=== PATIENT | male | born 1995 | race African-American/Black ===

== ENCOUNTER 2019-07-18 17:07 | Emergency (ER) | payer MEDICAID, SELFPAY ==
[2019-07-18 17:47] VITALS: BP 134/90; PULSE 82; RESP 18; TEMP 37; O2SAT 100
--- NOTE | 2019-07-18 20:47 | ED.ABDPAIN ---
HPI - Abdominal Pain General Chief Complaint: Urogenital-Male Stated Complaint: STD check Time Seen by Provider: 07/18/19 17:32 Source: patient Mode of arrival: ambulatory Limitations: no limitations History of Present Illness HPI narrative: Patient is a 23-year-old male who presents with penile discharge and irritation with urination noting that his girlfriend tested positive for chlamydia. Patient also notes some sore throat congestion and rhinorrhea. Patient denies vomiting or diarrhea Review of Systems Review of Systems: All systems reviewed & are unremarkable except as noted in HPI and below PMFSH Social History Social History (Updated 07/18/19 @ 20:47 by Farrukh Keene PA-C) Smoking status: Never smoker Gender identity (if verbalized by the patient): Male Exam Narrative: Exam Narrative: GENERAL: Well-appearing, well-nourished, and in no acute distress. HEAD: Normocephalic, atraumatic. EYES: PERRLA and EOMI. ENT: Nares clear, no rhinorrhea or epistaxis. Mucous membranes moist. Oropharynx with tonsillar and without hypertrophy exudate or other lesions. NECK: Supple. No adenopathy or masses. CHEST: Clear to auscultation. No respiratory distress. No wheezes rales or rhonchi HEART: Regular rate and rhythm. No murmur heard. EXTREMITIES: Normal range of motion. No edema. SKIN: Warm, dry, no rash. NEURO: No focal deficits. Alert and oriented x3. PSYCH: Normal mood and affect. Course Course Emergency Course: Patient in the room in no distress aware of case findings treatment plan and diagnosis Vital Signs Vital signs: Vital Signs Temperature 98.6 F 07/18/19 17:47 Pulse Rate 82 07/18/19 17:47 Respiratory Rate 18 07/18/19 17:47 Blood Pressure 134/90 07/18/19 17:47 Pulse Oximetry 100 07/18/19 17:47 Temperature 98.6 F 07/18/19 17:47 Pulse Rate 82 07/18/19 17:47 Respiratory Rate 18 07/18/19 17:47 Blood Pressure 134/90 07/18/19 17:47 Pulse Oximetry 100 07/18/19 17:47 MDM - Abdominal Pain MDM Narrative Medical decision making narrative: Patient in the room tested and treated for STDs agreeing to follow-up as directed Lab Data Labs: Lab Results 07/18/19 07/18/19 Range/Units 20:37 20:40 Urine Color Pending Urine Appearance Pending Urine pH Pending Ur Specific [place] Pending Urine Protein Pending Urine Glucose (UA) Pending Urine Ketones Pending Ur Blood (Man) Pending Urine Nitrate Pending Urine Bilirubin Pending Urine Urobilinogen Pending Leukocyte Esterase Rfl Pending C.trachomatis RNA (TMA) Pending N.gonorrhoeae RNA (TMA) Pending Discharge Plan Discharge Clinical Impression: Urethritis Patient Disposition: Home, Self-Care Condition: Stable Instructions: Antibiotic Form, Nonspecific Urethritis in Men (ED) Additional Instructions: Follow up with primary care in the next 2-3 days for re-evaluation. Use condoms Increase fluid intake. Tylenol and Motrin for pain and or fever if needed. Follow up with your doctor for further care. Call your doctor or return to the emergency department if needed for worsening symptoms or problems, especially if you have persistent high fever, vomiting, inability to urinate, weakness, blood in your urine, chnage in mental status, or other serious concerns. Follow-up/Referrals: PHYSICIAN,[employer] [Primary Care Provider] - Hector Kwon MD [Physician] -
[2019-07-18 20:55] LABS: Add Urine Microscopic? YES; Appearance Urine Clear (Clear); Bacteria Urine Trace /hpf; Bilirubin Urine Negative (Negative); Blood Urine Negative (Negative); Color Urine Yellow (Yellow); Glucose Urine UA Negative (Negative); Ketones Urine Negative (Negative); Leukocyte Esterase Ur 2+ LEU/UL (Negative); Nitrate Urine Negative (Negative); Protein Urine Negative (Negative); RBC Urine 0-2 /hpf (0-2); Specific Grav Ur 1.014 (1.001-1.035); Squamous Epithelial Cell Urine Rare /hpf (Few); WBC Urine 31-50 /hpf
[2019-07-18] MEDS: metroNIDAZOLE 250 MG TABLET 2000 MG PO (20:59)
[2019-07-18] MEDS: AZITHROMYCIN 250 MG TABLET 1000 MG PO (21:00)
[2019-07-18] MEDS: cefTRIAXone 250 MG VIAL IM (21:01)
== END 2019-07-18 21:07 | disposition home or self-care (01) ==
LOC: ANHED 20:56
PROVIDERS: Emergency Medicine Emergency Medical Services; Emergency Provider Emergency Medicine
DX: N34.2 Other urethritis (principal)
CPT/HCPCS: 81001; 87086; 87491; 87591; 96372; 99283; A9270; J0696

== ENCOUNTER 2021-03-05 13:51 | Emergency (ER) | payer MEDICAID, SELFPAY ==
[2021-03-05 14:08] VITALS: BP 154/97; PULSE 110; RESP 16; TEMP 36.9; O2SAT 100
--- NOTE | 2021-03-05 14:20 | ED.MALEGU ---
HPI - Male Genitourinary General Chief complaint: Urogenital-Male Stated complaint: STD Test Time Seen by Provider: 03/05/21 14:15 Source: patient, RN notes reviewed and old records reviewed Mode of arrival: ambulatory Limitations: no limitations History of Present Illness HPI Narrative: 25 year old male who presents to express care with complaints of achy feeling in testicles for the past 2-3 days and is concerned that he could of been exposed to STD. Patient states that he had unprotected sexual intercourse recently and thinks he may of contracted STD. Patient states that he had previous STD about a year ago after having contact with same partner. He states that he may be over thinking every thing. Patient denies any penile drainage or lesions, denies any pain. MD Complaint: other (aching feeling in testicles) Onset (ago): day(s) (2-3 days) Related Data Allergies Allergy/AdvReac Type Severity Reaction Status Date / Time No Known Allergies Allergy Verified 03/05/21 13:58 Review of Systems Review of Systems: CONSTITUTIONAL: Denies fever, chills, or sweats. EYES: Denies visual changes, redness, or discharge. ENT: Denies rhinorrhea, congestion, sore throat, or otalgia. CARDIOVASCULAR: Denies chest pain, palpitations, or edema. RESPIRATORY: Denies cough or dyspnea. GASTROINTESTINAL: Denies abdominal pain, nausea, vomiting, or diarrhea. GENITOURINARY: Denies dysuria or hematuria.denies any penile discharge or any lesions, reports achy feeling in testicle, denies any acute pain or swelling. SKIN: Denies rash or itching. MUSCULOSKELETAL: Denies back pain, joint pain, or myalgia. NEUROLOGIC: Denies headache, numbness, or weakness. PSYCHIATRIC: Denies anxiety or depression. [facility] Surgical History Surgical History (Updated 03/06/21 @ 12:27 by Lorraine Walker NP) No history of previous surgery Family History Family History (Updated 03/06/21 @ 12:28 by Lorraine Walker NP) Mother Hypertension Diabetes mellitus Grandparent Cerebrovascular accident Heart disease Social History Social History (Updated 03/06/21 @ 12:26 by Lorraine Walker NP) Smoking status: Never smoker Alcohol intake: current Alcohol use details: rare social Living arrangements: alone Occupation/Education: student Gender identity (if verbalized by the patient): Male Exam Narrative: GENERAL: Well-appearing, well-nourished, and in no acute distress. HEAD: Normocephalic, atraumatic. EYES: PERRLA and EOMI. ENT: Nares clear, no rhinorrhea or epistaxis. Mucous membranes moist.TM's normal with good light reflex, throat pink with no tonsil swelling or exudates. NECK: Supple.no lymphadenopathy CHEST: Clear to auscultation. No respiratory distress. HEART: Regular rate and rhythm. No murmur heard. Normal peripheral pulses. ABDOMEN: Soft, nontender, nondistended, normal active bowel sounds.No drainage or penile lesions, no testicle pain or swelling EXTREMITIES: Normal range of motion. No edema. SKIN: Warm, dry, no rash. NEURO: No focal deficits. Alert and oriented x3. Course Vital Signs Vital signs: Vital Signs Temperature 36.9 C 03/05/21 14:08 Pulse Rate 110 H 03/05/21 14:08 Respiratory Rate 16 03/05/21 14:08 Blood Pressure 154/97 H 03/05/21 14:08 Pulse Oximetry 100 03/05/21 14:08 Temperature 36.9 C 03/05/21 14:08 Pulse Rate 110 H 03/05/21 14:08 Respiratory Rate 16 03/05/21 14:08 Blood Pressure 154/97 H 03/05/21 14:08 Pulse Oximetry 100 03/05/21 14:08 MDM - Male Genitourinary MDM Narrative Medical decision making narrative: Patient received Rocephin 500mg IM while in clinic today with no reaction noted, patient given RX X2 for oral antibiotics with instructions.. Differential Diagnosis Differential diagnosis: Likely urinary tract infection, urethritis, prostatitis and other (STD, possible STD exposure) Medical Records Attestation: I reviewed the patient's medical records. Lab Data Attestation: I
[2021-03-05] MEDS: LIDOCAINE HCL 1% LOCAL INJ 20 ML VIAL IM (14:43)
[2021-03-05] MEDS: cefTRIAXone 500 MG VIAL IM (14:43)
== END 2021-03-05 15:10 | disposition home or self-care (01) ==
PROVIDERS: Emergency Provider Registered Nurse
DX: Z20.2 Contact with and (suspected) exposure to infections with a predominantly sexual mode of transmission (principal)
CPT/HCPCS: 81003; 87491; 87591; 87661; 96372; 99213; G0463; J0696